=== PATIENT | male | born 1940 | race Caucasian/White ===

== ENCOUNTER 2024-07-06 10:25 | Emergency (ER) | payer OTHER, SELFPAY ==
[2024-07-06 10:37] VITALS: BP 129/78; PULSE 62; RESP 18; TEMP 36.6; O2SAT 98; BMI 24.7
--- NOTE | 2024-07-06 11:20 | ED.GENADULT ---
HPI - General Adult General Date Seen: 07/06/24 Chief complaint: Shortness of Breath/Dyspnea Stated complaint: Trouble breathing, congestion Time Seen by Provider: 07/06/24 11:20 History of Present Illness HPI narrative: 84 yo M with a history of hypertension (amlodipine, losartan), type 2 diabetes (on Amaryl, glargine), dyslipidemia, tremor (propranolol), anxiety, presenting to the ER today for evaluation of shortness of breath as well as nasal congestion. History is obtained in part from the patient and in part from his daughter He has no history of heart disease, coronary disease, valvular disease, or arrhythmia. No history of lung disease or asthma. He notes that he has had some nasal congestion for at least a couple of months. With this he has not noted any cough, fever, shortness of breath, epistaxis. It has been present for couple months and isn't really getting better or worse. Sometimes his nose gets stuffed up during the day and sometimes at night and makes it difficult for him to breathe. He wonders if he might have allergies. Along with that he has been noticing some dyspnea on exertion this been present for the past couple of months. It has gotten a bit worse lately, according to his daughter. She has noted that he seems a little bit more out of breath with walking than he had been previously. Initially he had reported that he woke up at about 3:00 a.m. this morning with gasping for air and was unable to go back to sleep after that. However, it turns out that he has probably been waking up at night for the past couple of weeks with some shortness of breath. It sounds like this morning's episode was much worse than any prior. No associated chest pains recently. He does have occasional burning in his chest with exertion but that is been present for some years and has not actually been present for the past few weeks. He does have some chronic trouble with slight edema in his left ankle, typically noted during the evening, that is present present for years and is not changing lately. No new swelling in his right leg. No weight gain. No abdominal distension. He was woken about 3:00 a.m. with shortness of breath and just could not go back to sleep. He did not have any chest pain. No palpitations. No nausea. No pain in his back. No cough. Because of his nasal congestion he did have a COVID test at his assisted living yesterday and was negative. He also notes that he is under a lot of stress and that he is prone to anxiety. His fell and fractured her hip a couple weeks ago and is currently at a rehab facility. He has been sleeping alone the past week or 2 because she has been convalescing Related Data Previous Rx's ?Medication ?Instructions ?Recorded budesonide 32 mcg/actuation nasal 2 spray intranasal BID #8.43 mL 07/06/24 spray doxycycline hyclate 100 mg capsule 100 mg PO BID #14 caps 07/06/24 zolpidem 5 mg tablet (Ambien) 5 mg PO QHS PRN #7 tabs 07/06/24 Allergies Allergy/AdvReac Type Severity Reaction Status Date / Time No Known Drug Allergies Allergy Verified 07/06/24 14:17 [facility] Social History Smoking Status: Unknown if ever smoked Do you use any of these nicotine containing products: None Second hand tobacco smoke exposure: No How often do you have a drink containing alcohol: never AUDIT-C Alcohol total score: 0 Non-prescribed substance use: denies use Exam Narrative: Exam Narrative: Constitutional: Appears well-developed and well-nourished. Alert. Conversant. Non toxic. HENT: Head: Atraumatic. Nose: External nose normal. Small amount of mucosal edema. No purulent discharge. Generally clear. Mouth/Throat: Oral mucosa is clear and moist. no trismus. Pharynx normal. Tonsils symmetric. No tonsillar enlargement, erythema, or exudate. Eyes: Conjunctivae normal. EOM normal. Pupils equal, round, and reactive to light. No scleral icterus. Neck: Normal range of motion. Neck supple. No tracheal deviation present. No JVD Cardiovascular: Normal rate, regular rhythm. No gallop. No friction rub. No murmur heard. Symmetric radial and PT artery pulses Pulmonary/Chest: Effort normal. No stridor. No respiratory distress. No wheezes. No rales. No rhonchi . No tenderness. Abdominal: Soft. Bowel sounds normal. No distension. No mass. No tenderness. No rebound. No guarding. Musculoskeletal: RUE: Normal range of motion. No tenderness. No deformity LUE: Normal range of motion. No tenderness. No deformity RLE: Normal range of motion. No edema. No tenderness. No deformity LLE: Normal range of motion. No edema at this time but he says he often will get a little bit of puffiness in his left ankle in the evening.. No tenderness. No deformity Neurological: Alert and oriented to person, place, and time. Normal strength. CN II-VII intact. No sensory deficit. GCS eye subscore is 4. GCS verbal subscore is 5. GCS motor subscore is 6. Normal coordination Skin: Skin is warm and dry. No rash noted. No pallor. Normal capillary refill. Psychiatric: Normal mood. Normal affect. Const: Vital Signs, click to edit/add: Vital Signs - 24 hr 07/06/24 10:37 Temperature 97.8 F Pulse Rate [Right Pulse Oximeter] 62 Respiratory Rate 18 Blood Pressure [Ri ght Upper Arm] 129/78 Pulse Oximetry 98 Oxygen Delivery Me thod Room Air Course Vital Signs Vital signs: Initial Vital Signs Temperature 97.8 F 07/06/24 10:37 Temperature Source Temporal Artery Scan 07/06/24 10:37 Pulse Rate 62 07/06/24 10:37 Respiratory Rate 18 07/06/24 10:37 Blood Pressure 129/78 07/06/24 10:37 Blood Pressure Mean 95 07/06/24 10:37 Blood Pressure Position Sitting 07/06/24 10:37 Pulse Oximetry 98 07/06/24 10:37 Oxygen Delivery Method Room Air 07/06/24 10:37 Vital Signs Temperature 97.8 F 07/06/24 10:37 Pulse Rate 62 07/06/24 10:37 Respiratory Rate 18 07/06/24 10:37 Blood Pressure 129/78 07/06/24 10:37 Pulse Oximetry 98 07/06/24 10:37 Oxygen Delivery Method Room Air 07/06/24 10:37 Temperature 97.8 F 07/06/24 10:37 Pulse Rate 62 07/06/24 10:37 Respiratory Rate 18 07/06/24 10:37 Blood Pressure 129/78 07/06/24 10:37 Pulse Oximetry 98 07/06/24 10:37 Oxygen Delivery Method Room Air 07/06/24 10:37 Medical Decision Making MDM Narrative Medical decision making narrative: This patient presents to the ER today for evaluation of shortness of. Differential was broad. No evidence of palpitations, syncope or other cardiac dysrhythmia here in the ER. If symptoms persist, could consider possible Zio patch for monitoring for arrhythmias overnight. We considered possible ACS, however workup with EKG and troponin is negative. Given time since onset of symptoms, I do not think the patient needs to be admitted for further sets of enzymes. EKG shows no evidence for pericarditis. Clinical presentation not suggestive of myocarditis. Chest x-ray shows no evidence for pneumonia, pneumothorax, pulmonary edema, pleural effusion, rib fracture, cardiomegaly. BNP level normal and no peripheral edema to suggest CHF Mediastinum is normal on the x-ray. The patient has no chest pain, ripping or tearing pain through to the back and has symmetric pulses on exam, no other acute neuro findings so I doubt aortic dissection. Risk of radiation and contrast exposure would outweigh the benefit of CT angiogram. We considered PE for this patient. Abnormal D-dimer prompted CT PA. CT scan is negative for PE. Also negative for pneumonia, pleural effusion, pulmonary edema. CT scan does show possible inflammation around the bronchial tubes suggestive of bronchitis and some upper lobe nodules that are probably reactive or infectious. He has already been tested for COVID at home so did not repeat that here in the ER today. Although bronchitis is typically viral, given multiple weeks of symptoms now worsening, will treat the patient with a course of antibiotics (doxycycline 100 mg p.o. b.i.d. for 7 days) he is a nonsmoker. No history of asthma. No wheezing on exam No wheezing or bronchospasm to suggest COPD/asthma. No signs of chest wall cellulitis, shingles, injury. There may be some component of anxiety contributing to his symptoms too. He is under lot of stress because his recently fractured her hip and is currently in a correction recovering. It sounds like he has a long history of anxiety insomnia. He and his daughter are requesting a prescription for some medicine to help him sleep. We discussed potential side effects of medications. Will try him on a short course of Ambien. They understand the need to follow-up with her primary care provider to for further insomnia management, refills, and order med adjustments as needed. With reasonable clinical confidence, I think the patient is safe for outpatient follow up. Discussed return precautions. Questions answered. Patient voices comfort with the plan. Lab Data Labs: Lab Results 07/06/24 Range/Units 11:56 WBC 6.81 (4.50-11.00) K/uL RBC 3.15 L (4.30-5.90) m/uL Hgb 10.5 L (13.5-17.5) gm/dL Hct 30.0 L (37.0-53.0) % MCV 95 (80-100) fL MCH 33 (26-34) pg MCHC 35 (32-36) gm/dL RDW Coeff of Lang 13.2 (11.5-15.5) % Plt Count 210 (140-440) K/uL Neut % (Auto) 69.5 (42.0-72.0) % Lymph % (Auto) 15.0 L (20-44) % [place] % (Auto) 9.1 (0.0-11.0) % Eos % (Auto) 5.6 (0.0-7.0) % Baso % (Auto) 0.4 (0.0-3.0) % Neut # (Auto) 4.73 (1.7-7.0) K/uL Lymph # (Auto) 1.00 (0.90-2.90) K/uL [place] # (Auto) 0.60 (0.00-0.90) K/UL Eos # (Auto) 0.38 (0.00-0.50) K/uL Baso # (Auto) 0.03 (0.00-0.30) K/uL Abs Immat Gran (auto) 0.03 (0.00-0.30) K/uL Imm/Tot Granulo (auto) 0.4 % D-Dimer Quant (PE/DVT) 1.25 H (0.00-0.50) ug/ml Sodium 133 L (135-149) mmol/L Potassium 4.1 (3.6-5.1) mmol/L Chloride 97 (96-114) mmol/L Carbon Dioxide 24 (20-32) mmol/L Anion Gap 12 (7-15) mEq/L BUN 32 H (7-30) mg/dL Creatinine 1.6 H (0.5-1.5) mg/dL Estimated Creat Clear 37.72 Estimated GFR 42 ml/min Glucose 174 H (60-115) mg/dL Calcium 9.6 (8.4-10.6) mg/dL Troponin I < 0.01 L (0.01-0.04) ng/mL NT-Pro-B Natriuret Pep 153 pg/mL Imaging Data Chest x-ray: Attestation: I have reviewed the pertinent imaging results. Radiologist's impression: IMPRESSION: No evidence of acute cardiopulmonary disease. CT scan - chest: Attestation: I have reviewed the pertinent imaging results. Radiologist's impression: IMPRESSION: No pulmonary embolism. Mild bronchial wall thickening throughout the lungs, which is nonspecific and can be seen with infectious/inflammatory bronchitis. Sub-4 millimeter nodules in the right upper lobe, may be infectious or inflammatory. No further follow-up is indicated if this patient is low risk for malignancy. If this patient is high risk, repeat CT can be considered in 12 months. ECG Data Attestation: I personally reviewed and interpreted this ECG as follows: Interpretation: Normal sinus rhythm first-degree AV block Rate: 60 MO: 234 QRS axis: Left axis deviation. ST segment/T wave: No ST segment elevation or depression. QTc: 454 Discharge Plan Discharge Clinical Impression: Bronchitis, Insomnia Instructions: Acute Bronchitis (ED), Insomnia (ED) Additional Instructions: As we discussed, please come back to the emergency room right away if you have worsening trouble breathing or any other new symptoms such as chest pain, swelling in your legs, high fever, or new coughing. Use the antibiotic to help treat your lung infection. Use the steroid nasal spray to help reduce the inflammation in your nose and nasal congestion. Use the sleep medication if needed for insomnia. Be sure to follow-up with your regular doctor within 3-5 days for a recheck and to discuss your insomnia. Prescriptions: New doxycycline hyclate 100 mg capsule 100 mg PO BID Qty: 14 0RF zolpidem [Ambien] 5 mg tablet 5 mg PO QHS PRNQty: 7 0RF budesonide 32 mcg/actuation spray,non-aerosol 2 spray intranasal BID Qty: 8.43 0RF Rx Instructions: administer into each nostril Follow Up/Referrals: Provider,Not a Local [Primary Care Provider] - Stand Alone Forms: [employer] Video Info Instructions
--- NOTE | 2024-07-06 11:46 | CRLHL7_ITS ---
For Patients: As a result of the Century Cures Act, medical imaging exams and procedure reports are released immediately into your electronic medical record. You may view this report before your referring provider. If you have questions, please contact your health care provider. INDICATION: Dyspnea. Orthopnea. TECHNIQUE: Chest 2 views. COMPARISON: None. FINDINGS: No pneumothorax or pleural effusion. Lungs are clear. Cardiac and mediastinal contours are within normal limits. Upper abdomen and osseous structures as imaged show no acute abnormality. IMPRESSION: No evidence of acute cardiopulmonary disease. Dictated by Roderick Patel MD @ 07/06/2024 12:40:39 PM (Electronically Signed)
[2024-07-06 12:07] LABS: Basophils Absolute Auto 0.03 K/uL (0.00-0.30); Basophils Percent Auto 0.4 % (0.0-3.0); Eosinophils Absolute Auto 0.38 K/uL (0.00-0.50); Eosinophils Percent Auto 5.6 % (0.0-7.0); Hemoglobin* 10.5 gm/dL (13.5-17.5); Immature Granulocytes Abs Auto 0.03 K/uL (0.00-0.30); Immature Granulocytes Pct Auto 0.4 %; Mean Corpuscular HGB Conc 35 gm/dL (32-36); Mean Corpuscular Hemoglobin 33 pg (26-34); Mean Corpuscular Volume 95 fL (80-100); Monocytes Percent Auto 9.1 % (0.0-11.0); Neutrophils Absolute Auto 4.73 K/uL (1.7-7.0); Neutrophils Percent Auto 69.5 % (42.0-72.0); Platelet Count* 210 K/uL (140-440); RDW Coefficient of Variation % 13.2 % (11.5-15.5); Red Blood Count 3.15 m/uL (4.30-5.90); White Blood Count* 6.81 K/uL (4.50-11.00)
[2024-07-06 12:08] LABS: Slide Review Reflex No
[2024-07-06 12:19] LABS: Chloride* 97 mmol/L (96-114)
[2024-07-06 12:20] LABS: Potassium* 4.1 mmol/L (3.6-5.1); Sodium* 133 mmol/L (135-149)
[2024-07-06 12:22] LABS: Creatinine* 1.6 mg/dL (0.5-1.5); D Dimer Quantitative* 1.25 ug/ml (0.00-0.50); Est. Creatinine Clearance* 37.72; Estimated Glomerular Filt Rate 42 ml/min
[2024-07-06 12:23] LABS: Anion Gap 12 mEq/L (7-15); Blood Urea Nitrogen* 32 mg/dL (7-30); Calcium* 9.6 mg/dL (8.4-10.6); Carbon Dioxide* 24 mmol/L (20-32); Glucose* 174 mg/dL (60-115)
--- OUTSIDE RECORDS SUMMARY | 2024-07-06 12:40 | XMS_ITS | Clinical Summary ---
Author Organization [facility] Address [place], [place] [address] Care Team Providers Care Car Pre Cooler Name Role Phone Luis Armando Oviedo DO Primary Care Provide r Allergies No known active allergies Medications Medication Sig Dispensed Refills Start Date End Date Status aspirin enteric coated (ECOTRIN) 325 mg tablet Take 325 mg by mouth once daily. 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 Dispense meter, test strips, lancets covered by pt ins. E11.9 NIDDM type II - Test 1 time/day 1 Device 1 Active nitroglycerin (NITROSTAT) 0.4 mg sublingual tabletIndications: HTN (hypertension) Place 1 Tablet (0.4 mg) under the tongue every 5 minutes if needed for Chest Pain. 25 Tablet 2 Active lancetsIndications :Type 2 diabetes mellitus without complication, without long-term current use of insulin (HC) As directed. Test 3 times per day. 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 TO USE WITH INSULIN 100 Each 3 4 Active hydroCHLOROthiazid e 50 mg tabletIndications: Essential hypertension TAKE 1 TABLET BY MOUTH EVERY DAY 90 Tablet 2 4 Active losartan (COZAAR) 100 mg tabletIndications: Essential hypertension TAKE 1 TABLET BY MOUTH EVERY DAY 90 Tablet 2 4 Active insulin glargine, U-300, (Toujeo Max U-300 SoloStar) 300 unit/mL (3 mL) inpn penIndications:Typ e 2 diabetes mellitus with chronic kidney disease, without long-term current use of insulin, unspecified CKD stage (HC) INJECT 12 UNITS SUBCUTANEOUS ONCE DAILY. 13.5 mL 4 Active primidone (MYSOLINE) 50 mg tabletIndications: Essential tremor TAKE 3 TABLETS (150 MG) BY MOUTH AT BEDTIME. 270 Tablet 3 4 Active metFORMIN (GLUCOPHAGE) 500 mg tabletIndications: Type 2 diabetes mellitus with chronic kidney disease, without long-term current use of insulin, unspecified CKD stage (HC) TAKE 2 TABLETS (1,000 MG) BY MOUTH TWICE A DAY WITH MEALS 360 Tablet 1 4 Active simvastatin (ZOCOR) 40 mg tabletIndications: Other hyperlipidemia TAKE 1 TABLET BY MOUTH EVERY DAY 90 Tablet 3 4 Active glimepiride (AMARYL) 4 mg tabletIndications: Type 2 diabetes mellitus without complication, without long-term current use of insulin (HC) TAKE 2 TABLETS BY MOUTH DAILY WITH MEAL 180 Tablet 1 4 Active glimepiride (AMARYL) 4 mg tabletIndications: Type 2 diabetes mellitus without complication, without long-term current use of insulin (HC) 2 tabs p.o. 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 ease Encounters Date Type Department Care Team Description 07/06/2024 9:20 AM CDT Office Visit [facility] [id number] [place] [phone] Dianne Omer PA Breathing Problem; Sinus Problem 07/06/2024 Travel 07/02/2024 Refill [facility] [id number] [place] [phone] Luis Armando Oviedo DO Refill Request (Glimepiride) 06/04/2024 Refill [facility] [id number] [place] [phone] Luis Armando Oviedo DO Refill Request (Simvastatin) 05/20/2024 10:20 AM CDT Office Visit [facility] [id number] [place] [phone] Luis Armando Oviedo DO Medicare ANNUAL (subsequent) Visit (Fasting- No concerns noted) 05/20/2024 Travel 05/16/2024 Refill [facility] [id number] [place] [phone] Luis Armando Oviedo DO Refill Request (Metformin) 05/09/2024 Refill [facility] [id number] [place] [phone] Luis Armando Oviedo DO Refill Request (Primidone) 04/20/2024 Refill [facility] [id number] [place] [phone] Luis Armando Oviedo DO Refill Request (Metformin) from Last 3 Months Immunizations Name Administration Dates Next Due COVID-19 vaccine (TapPress-Bio NTech 30mcg/0.3mL) 12YO+ NIMA-SUCROSE PF, MDV 12/30/2021 COVID-19 vaccine (TapPress-Bio NTech 30mcg/0.3mL) PF, MDV 06/18/2021,12/08/2020,11/17/2020 Influenza, High-dose Inactivated 019,05/27/2018,07/02/2017,2016,07/24/2016 Influenza, High-dose Quadriv alent Inactivated 06/23/2023,05/25/2022 Influenza, IIV3 (Age 6-35 mos) 06/16/2009 Influenza, IIV3 (Age >=3 years) 06/28/2013,06/11,07/31/2010 Pneumococcal Conj 20-valent (Prevnar 20) 02/19/2022 Pneumococcal Poly,23-Valent (Pneumovax) 05/28/2012 Td, Preservative Free (age > = 7 Years) 07/22/2006 Zoster (Zostavax-ZVL, live) 09/16/2012 Social History Tobacco Use Types Packs/Day Years Used Date Smoking Tobacco: Never Smokeless Tobacco: Never Alcohol Use Standard Drinks/Week Comments Not Currently 0 (1 standard drink = 0.6 oz pur e alcohol) PHQ-2 Answer Date Recorded PHQ-2 TOTAL SCORE 0 05/20/2024 Social Connections Answer Date Recorded Do you often feel lonely or isolated from those around you? 0 05/20/2024 Financial Resource Strain Answer Date R ecorded Difficulty of Paying Living Expenses 3 05/20/2024 Difficulty of Paying Living Expenses Not on file 05/20/2024 Food Insecurity Answer Date Recorded Do you worry your food will run out before you are able to buy more? 1 05/20/2024 Transportation Needs Answer Date Record ed Does lack of transportation keep you from medica l appointments? 1 05/20/2024 Does lack of transportation keep you from work, meetings or getting things that you need? 1 05/20/2024 Housing Stability Answer Date Recorded What is your housing situation today? 1 05/20/2024 Sex and Gender Information Value Date Recorded Sex Assigned at Not on file Gender Identity Not on file Sexual Orientation Not on file Obstetrics History Last Filed Vital Signs Vital Sign Reading Time Taken Comments Blood Pressure 161/71 07/06/2024 9:04 AM CDT Pulse 68 07/06/2024 9:04 AM CDT Temperature 36.1 ??C (96.9 ??F) 07/06/2024 9:04 AM CD T Respiratory Rate 24 07/06/2024 9:04 AM CDT Oxygen Saturation 99% 07/06/2024 9:04 AM CDT Inhaled Oxygen Concentration - - Weight 83 kg (183 lb) 05/20/2024 10:22 AM CDT Height 176.5 cm (5' 9.5) 05/20/2024 10:22 AM CD T Body Mass Index 26.64 05/20/2024 10:22 AM CDT Plan of Treatment Health Maintenance Due Date Last Done Comments Tdap 01/08/1951 Zoster (shingles) series for age 50+ (2 of 3) 11/11/2012 09/16/2012 RSV vaccine for adults or (1 - 1-dose 75+ series) 01/08/2015 Tetanus booster 07/22/2016 07/22/2006 COVID-19 vaccine series ( season) 2024 06/19/2022, 12/30/2021, 06/18/2021, Additional history exists Influenza for age 65+ 05/09/2024 06/23/2023 , 05/25/2022, 06/09/2019, Additional history exists BMI (ht and wt on same day) for age 18+ 05/20/2025 05/20/2024, 2023, 11/27/2021, Additional history exists Depression screening for age 12+ 05/20/2025 05/20/2024, 11/18/2023, 2023, Additional history exists Medicare Wellness for age 65+ 05/21/2025, 2023, 11/27/2021 Pneumococcal series for age 65+ Completed , 05/28/2012 Procedures Procedure Name Priority Date/Time Associated Diagnosis Comments PSA TOTAL SCREEN Routine 05/20/2024 10:4 8 AM CDT Prostate cancer screening HEMOGLOBIN A1C MONITORING (POCT) Routine 05/20/2024 10:48 AM CDT Type 2 diabetes mellitus with chronic kidney disease, without long-term current use of insulin, unspecified CKD stage (HC) LIPID PANEL W REFLEX MEASURED LDL Routine 05/20/2024 10:48 AM CDT Other hyperlipidemia COMP METABOLIC PANEL Routine 05/20/2024 10:48 AM CDT Medicare annual wellness visit, subsequent CBC W PLT NO DIFF Routine 05/20/2024 10: 48 AM CDT Medicare annual wellness visit, subsequent from Last 3 Months Results * LIPID PANEL W REFLEX MEASURED LDL (05/20/2024 10:48 AM CDT) [facility] CHOLESTEROL,TOTAL 153 100 - 199 mg/dL 05/21/2024 1:16 AM CDT [facility] Comment: Cholesterol, Total Reference Ranges Desirable <200 mg/dL Borderline 200-239 mg/dL High >=240 mg/dL TRIGLYCERIDES 91 <150 mg/dL 05/21/2024 1:16 AM CDT [employer] [facility] HDL CHOLESTEROL 58 >40 mg/dL 1:16 AM CDT [facility] [employer] [facility] NON-HDL CHOLESTEROL 95 <145 mg/dl 05/21/2024 1:16 AM CDT [facility] CHOL/HDL RATIO 2.64 <4.50 05/21/2024 1:16 AM CDT [facility] [employer] [facility] LDL CHOLESTEROL 77 <=130 mg/dL 05/21/2024 1:16 AM CDT [facility] [employer] [facility] VLDL CHOLESTEROL 18 <=30 mg/dL 05/21/2024 1:16 AM CDT [facility] PROVIDER ORDERED STATUS RANDOM 05/21/2024 1:16 AM CDT [facility] [employer] Blood BLOOD SPECIMEN / Unknown Venipuncture / Unknown 05/20/2024 10:48 AM CDT 05/20/2024 10:48 AM CDT Luis Armando Oviedo DO CHEMISTRY [facility] [address] [place] [address], * (ABNORMAL) CBC W PLT NO DIFF (05/20/2024 10:48 AM CDT) WHITE BLOOD COUNT 8.2 4.5 - 11.0 thou/cu mm 05/20/2024 11:05 AM CDT [facility] RED BLOOD COUNT 3.37(L) 4.30 - 5.90 mil/cu mm 05/20/2024 11:05 AM CDT [facility] HEMOGLOBIN 11.7(L) 13.5 - 17.5 g/dL 05/20/2024 11:05 AM CDT [facility] HEMATOCRIT 31.8(L) 37.0 - 53.0 % 05/20/2024 11:05 AM CDT [facility] MCV 94 80 - 100 fL 05/20/2024 11:05 AM CDT [facility] MCH 34.7(H) 26.0 - 34.0 pg 05/20/2024 11:05 AM CDT [facility] MCHC 36.8(H) 32.0 - 36.0 g/dL 05/20/2024 11:05 AM CDT [facility] RDW 13.2 11.5 - 15.5 % 05/20/2024 11:05 AM CDT [facility] PLATELET COUNT 221 140 - 440 thou/cu mm 05/20/2024 11:05 AM CDT [facility] MPV 9.9 6.5 - 11.0 fL 05/20/2024 11:05 AM CDT [facility] NRBC 0.0 % 05/20/2024 11:05 AM CDT [facility] ABS NRBC 0.0 thou /cu mm 05/20/2024 11:05 AM CDT [facility] Blood BLOOD SPECIMEN / Unknown Venipuncture / Unknown 05/20/2024 10:48 AM CDT 05/20/2024 10:48 AM CDT Luis Armando Oviedo DO HEMATOLOGY Performing Organization Address [facility] Co de Phone Number [facility] [address] [place] [address], [place] * (ABNORMAL) HEMOGLOBIN A1C MONITORING (POCT) (05/20/2024 10:48 AM CDT) HEMOGLOBIN A1C MONITORING (POCT) 6.5(H) <=6.4 % 05/20/2024 11:15 AM CDT [facility] Blood BLOOD SPECIMEN / Unknown Venipuncture / Unknown 05/20/2024 10:48 AM CDT 05/20/2024 10:48 AM CDT Narrative [facility] - 05/20/2024 11:15 AM CDT ? (<=6.9%) ? Indicates good control ? (7.0% to 7.9%) ? Indicates fair control ? (>=8.0%) ? Indicates poor control ?? NOTE: ??These thresholds are guidelines and ?individual targets may vary. Falsely low levels may be seen with: Recent Transfusion, Recent Significant Blood Loss, Hemolytic Diseases, or Falsely elevated levels may be seen with: Untreated Anemias, Splenectomy ? Luis Armando Oviedo DO CHEMISTRY Performing Organization Address [facility] Co de Phone Number [facility] [address] [place] [address], [place] * (ABNORMAL) COMP METABOLIC PANEL (05/20/2024 10:48 AM CDT) SODIUM 137 136 - 145 mmol/L 05/21/2024 1:16 AM CDT [facility] POTASSIUM 4.5 3.5 - 5.1 mmol/L 05/21/2024 1:16 AM [facility] CHLORIDE 97(L) 98 - 107 mmol/L 05/21/2024 1:16 AM [facility] CO2,TOTAL 24 22 - 29 mmol/L 05/21/2024 1:16 AM [facility] ANION GAP 16 5 - 18 05/21/2024 1:16 AM [facility] GLUCOSE 143(H) 70 - 99 mg/dL 05/21/2024 1:16 AM [facility] CALCIUM 9.9 8.8 - 10.2 mg/dL 05/21/2024 1:16 AM [facility] BUN 23 8 - 23 mg/dL 05/21/2024 1:16 AM [facility] CREATININE 1.29(H) 0.70 - 1.20 mg/dL 05/21/2024 1:16 AM [facility] BUN/CREAT RATIO 18 10 - 20 1:16 AM [facility] eGFR 55(L) >90 mL/min/1.7 3m2 05/21/2024 1:16 AM [facility] Comment:As of 2021, eG FR is calculated by the CKD-EPI creatinine equation without race adjustment. ??eGFR can be influenced by muscle mass, exercise, and diet. ??The reported eGFR is an estimation only and is only applicable if the renal function is stable. ALBUMIN 4.8 4.0 - 4.9 g/dL 05/21/2024 1:16 AM [facility] PROTEIN,TOTAL 7.5 6.0 - 8.0 g/dL 05/21/2024 1:16 AM [facility] BILIRUBIN,TOTAL 0.3 0.0 - 1.2 mg/dL 05/21/2024 1:16 AM [facility] ALK PHOSPHATASE 66 40 - 129 IU/L 05/21/2024 1:16 AM [facility] ALT (SGPT) 17 10 - 50 IU/L 05/21/2024 1:16 AM CDT [facility] AST (SGOT) 23 10 - 50 IU/L 05/21/2024 1:16 AM CDT [facility] Blood BLOOD SPECIMEN / Unknown Venipuncture / Unknown 05/20/2024 10:48 AM CDT 05/20/2024 10:48 AM CDT [employer] CHEMISTRY Performing Organization Address City/[facility]/ZIP Co de Phone Number [facility] [address] [place] [address], * PSA TOTAL SCREEN (05/20/2024 10:48 AM CDT) PSA TOTAL (SCREEN) 0.85 <4.00 ng/mL 05/21/2024 1:16 AM CDT [facility] Blood BLOOD SPECIMEN / Unknown Venipuncture / Unknown 05/20/2024 10:48 AM CDT 05/20/2024 10:48 AM CDT Narrative [facility] - 05/21/2024 1:16 AM CDT The test method changed on 03/04/2023. If this test has been used for serial monitoring, rebaselining is recommended. Rebaselining consists of 2 measurements, collected 3-6 weeks apart. The [employer] Ele[employer]ys total PSA assay is an electrochemiluminescence immunoassay ECLIA performed on the [employer] Gab e immunoassay analyzers. Values obtained with different assay methods may be different and cannot be used interchangeably. [employer] LABORATORY Performing Organization Address City/[facility]/ZIP Co de Phone Number [facility] 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
[2024-07-06 12:42] LABS: NT Pro B Type NatriureticPept* 153 pg/mL; Troponin I* < 0.01 ng/mL (0.01-0.04)
--- NOTE | 2024-07-06 13:40 | CRLHL7_ITS ---
For Patients: As a result of the Century Cures Act, medical imaging exams and procedure reports are released immediately into your electronic medical record. You may view this report before your referring provider. If you have questions, please contact your health care provider. INDICATION: Dyspnea, abnormal D-dimer, congestion TECHNIQUE: CT chest PE was acquired with 95 cc Isovue 370 IV contrast. COMPARISON: Same day chest radiograph. FINDINGS: Heart and vasculature: Contrast opacification of the pulmonary arterial tree is adequate. No sign of pulmonary embolism. Heart size is normal. Trivessel coronary artery calcification. Thoracic aorta and pulmonary artery are normal in caliber. Atherosclerosis of the aorta. Lungs and pleura: There multiple sub 4 millimeter pulmonary nodules in the right upper lobe (6/40, 52, 54). Mild bronchial wall thickening throughout the lungs. No pleural effusions, pleural thickening, or pneumothorax. Lymph nodes/mediastinum: No mediastinal, hilar, or axillary adenopathy. Chest wall: No masses. 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 Right renal cysts. Cholecystectomy. 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 Mild degenerative disease of the spine. IMPRESSION: No pulmonary embolism. Mild bronchial wall thickening throughout the lungs, which is nonspecific and can be seen with infectious/inflammatory bronchitis. Sub-4 millimeter nodules in the right upper lobe, may be infectious or inflammatory. No further follow-up is indicated if this patient is low risk for malignancy. If this patient is high risk, repeat CT can be considered in 12 months. Please note that all CT scans at this facility use dose modulation, iterative reconstruction, and/or weight-based dosing when appropriate to reduce radiation dose to as low as reasonably achievable. Dictated by Samanta Stvee MD @ 07/06/2024 2:34:06 PM (Electronically Signed)
== END 2024-07-06 15:01 | disposition home or self-care (01) ==
PROVIDERS: Emergency Provider Emergency Medicine
DX: J20.9 Acute bronchitis, unspecified (principal); G47.00 Insomnia, unspecified
CPT/HCPCS: 36415; 71046; 71275; 80048; 83880; 84484; 85025; 85379; 93005; 99283; 99284; 99285; Q9967